=== PATIENT | female | born 1960 | race Caucasian/White ===

== ENCOUNTER 2017-02-07 02:59 | Emergency (ER) | payer OTHER ==
[~2017-02-07] VITALS: Ht 165.1 cm; Wt 68.0 kg
[~2017-02-07 02:59] MED LIST: BACTRIM DS TAB1 EAC1 ORAL; IBUPROFEN600 MG ORAL
[2017-02-07] MEDS ORDERED: CEPHALEXIN500 MG ORAL (03:25)
[2017-02-07 03:34] VITALS: BP 192/97
[2017-02-07] MEDS ORDERED: oxyCODONE HCL/Acetaminophen 5/325mg ORAL ONE (03:45)
[2017-02-07] MEDS ORDERED: KEFLEX500 MG ORAL (04:34)
[2017-02-07] MEDS ORDERED: BACTRIM DS TAB1 EAC1 ORAL (04:34)
--- NOTE | 2017-02-07 04:47 | Emergency Room Report ---
History of Present Illness General Chief Complaint: Skin Rash/Abscess Source: Patient Present Illness HPI [id number] [employer] patient with 2 days pain/swelling/abscess to right shoulder Previous abscesses Denies DM ?on keflex Denies fever/chills Allergies: Coded Allergies: No Known Allergies (Unverified , 02/07/17) Patient History Past Medical History: none Past Surgical History: none Pertinent Family History: none Social History: Denies: alcohol use, drug use, smoking Last Menstrual Period: n/a Now: No Immunizations: UTD Reviewed Nursing Documentation: PMH: Agreed, PSxH: Agreed Nursing Documentation-PMH Past Medical History: No History, Except For History Of Psychiatric Problem: Yes Review of Systems All Other Systems: negative except mentioned in HPI Physical Exam Vital Signs Date Time Temp Pulse Resp B/P Pulse Ox O2 Delivery O2 Flow Rate FiO2 02/07/17 03:18 97.9 103 16 192/97 100 Room Air Sp02 EP Interpretation: reviewed, normal General Appearance: normal inspection, well appearing, no apparent distress, alert Head: atraumatic ENT: normal ENT inspection, hearing grossly normal, normal voice Neck: normal inspection, full range of motion, supple, no bony tend Respiratory: normal inspection, lungs clear, normal breath sounds, no respiratory distress, no retraction, no wheezing Cardiovascular #1: regular rate, rhythm, no edema Gastrointestinal: normal inspection, normal bowel sounds, non tender, soft, no guarding, no hernia Genitourinary: no CVA tenderness Musculoskeletal: normal inspection, back normal, normal range of motion, Hussein' s Sign negative Neurologic: normal inspection, alert, oriented x3, responsive, 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 nml as tested, motor strength/tone normal, speech normal Psychiatric: normal inspection, judgement/insight normal, mood/affect normal Skin: other - Right lateral sholder with 4cm abscess with overlying erythema Procedures Incision and Drainage Incision and Drainage : Consent: Verbal Blade Size: 11 I & D Procedure: betadine prep Wound Location: upper extremity Wound's Depth, Shape: superficial Wound Explored: clean Anesthesia: Lidocaine w/ Epi Splint Applied?: No Sling Applied?: No Patient Tolerated: Well Complications: None Progress 15cc purulent pus evacuated from abscess Medical Decision Making Diagnostic Impression: Primary Impression: Abscess ER Course Abscess s/p I&D Patient endorses ?history of MRSA Will double coverage with Keflex/Bactrim PMD follow up as needed DC home Last Vital Signs Date Time Temp Pulse Resp B/P Pulse Ox O2 Delivery O2 Flow Rate FiO2 02/07/17 03:34 97.9 78 16 192/97 100 Room Air Status: improved Disposition: HOME, SELF-CARE Condition: Improved Scripts Trimethoprim/Sulfamethoxazole 160/800* (BACTRIM DS TABLET*) 1 Each Tablet 1 TAB ORAL Q12H for 7 Days, #14 TAB 0 Refills Prov: CHRISTOPH FINN M.D. 02/07/17 Cephalexin* (KEFLEX*) 500 Mg Capsule 500 MG ORAL EVERY 6 HOURS for 7 Days, #28 CAP 0 Refills Prov: CHRISTOPH FINN M.D. 02/07/17 Patient Instructions: CHRISTOPH Fofana M.D. Feb 07, 2017 04:47
[2017-02-07 04:55] VITALS: BP 192/97
== END 2017-02-07 04:55 | disposition home or self-care (01) ==
LOC: EMR 03:20
DX: L02.413 Cutaneous abscess of right upper limb (principal)
CPT/HCPCS: 10060; 99284

== ENCOUNTER 2017-12-01 04:20 | Emergency (ER) | payer OTHER ==
[~2017-12-01] VITALS: Ht 165.1 cm; Wt 68.0 kg
[~2017-12-01 04:20] MED LIST changes: +CEPHALEXIN500 MG ORAL; +KEFLEX500 MG ORAL
[2017-12-01 04:28] VITALS: BP 160/79
[2017-12-01] MEDS ORDERED: IBUPROFEN600 MG ORAL (04:36)
[2017-12-01] MEDS ORDERED: AMOXICILLIN500 MG ORAL (04:36)
[2017-12-01] MEDS ORDERED: HYDROCODON-ACE1 EA15 ORAL (04:36)
--- NOTE | 2017-12-01 04:36 | Emergency Room Report ---
History of Present Illness General Chief Complaint: Earache Source: Patient Present Illness HPI Is a 57-year-old female with a history of chronic back pain taking oxycodone. She present with right ear pain. Onset for one day. Slight congestion. Worse with coughing and sneezing. No fever chills but pain is 10 out of 10. Localized to the right ear. No drainage. Allergies: Coded Allergies: No Known Allergies (Unverified , 12/01/17) Patient History Past Medical History: see triage record, old chart reviewed Past Surgical History: other Pertinent Family History: none Social History: Reports: smoking Last Menstrual Period: n/a Now: No Immunizations: other Reviewed Nursing Documentation: PMH: Agreed; PSxH: Agreed Nursing Documentation-PMH Hx Hypertension: Yes Hx Diabetes: Yes Review of Systems Eye: Denies: eye pain, blurred vision ENT: Reports: ear pain; Denies: nose congestion, throat swelling Respiratory: Denies: cough, shortness of breath Cardiovascular: Denies: chest pain, palpitations Gastrointestinal: Denies: abdominal pain, diarrhea, nausea, vomiting Musculoskeletal: Denies: back pain, joint pain Skin: Denies: rash Neurological: Denies: headache, numbness Endocrine: Denies: increased thirst, increased urine Hematologic/Lymphatic: Denies: easy bruising All Other Systems: negative except mentioned in HPI Physical Exam Vital Signs Date Time Temp Pulse Resp B/P (MAP) Pulse Ox O2 Delivery O2 Flow Rate FiO2 12/01/17 04:23 98.2 100 16 160/79 96 Room Air 98.2 vitals normal Sp02 EP Interpretation: reviewed, normal General Appearance: well appearing, no apparent distress, alert Head: normocephalic, atraumatic Eyes: bilateral eye PERRL, bilateral eye EOMI ENT: hearing grossly normal, normal pharynx, other - Right TM is dull with fluid. Neck: full range of motion, supple, no meningismus Respiratory: chest non-tender, lungs clear, normal breath sounds Cardiovascular #1: regular rate, rhythm, no murmur Gastrointestinal: normal bowel sounds, non tender, no mass, no organomegaly, no bruit, non-distended Musculoskeletal: back normal, gait/station normal, normal range of motion Psychiatric: mood/affect normal Skin: warm/dry Medical Decision Making Diagnostic Impression: Primary Impression: Acute otitis media with effusion of right ear ER Course Patient with otitis media with effusion. No perforation. No mastoiditis or meningitis. No other bacterial infection. We'll discharge home. Last Vital Signs Date Time Temp Pulse Resp B/P (MAP) Pulse Ox O2 Delivery O2 Flow Rate FiO2 12/01/17 04:28 98.2 100 16 160/79 96 Room Air 98.2 Status: improved Disposition: HOME, SELF-CARE Condition: Stable Scripts Ibuprofen* (MOTRIN*) 600 Mg Tablet 600 MG ORAL THREE TIMES A DAY, #30 TAB 0 Refills Prov: NERISSA DANIELSON M.D. 12/01/17 Hydrocodone/Acetaminophen 5-325* (HYDROCODONE/ACETAMINOPHEN 5-325*) 1 Each Tablet 1 TAB ORAL Q6H PRN for For Pain, #10 TAB 0 Refills Prov: NERISSA DANIELSON M.D. 12/01/17 Amoxicillin* (AMOXIL*) 500 Mg Capsule 500 MG ORAL THREE TIMES A DAY, #21 CAP Prov: NERISSA DANIELSON M.D. 12/01/17 Patient Instructions: Otitis Media, Adult, [id number] Additional Instructions: Follow-up with your doctor in 5-7 days. Return if symptom worsen. NERISSA DANIELSON M.D. Dec 01, 2017 04:36
[2017-12-01] MEDS ORDERED: Norco 5mg/325mg tab ORAL ONE (04:45)
[2017-12-01 04:52] VITALS: BP 160/79
== END 2017-12-01 05:20 | disposition home or self-care (01) ==
LOC: EMR 05:18
DX: H65.191 Other acute nonsuppurative otitis media, right ear (principal); I10 Essential (primary) hypertension; E11.9 Type 2 diabetes mellitus without complications
CPT/HCPCS: 99284

== ENCOUNTER 2018-04-03 18:40 | Emergency (ER) | payer OTHER ==
[~2018-04-03] VITALS: Ht 165.1 cm; Wt 68.0 kg
[~2018-04-03 18:40] MED LIST changes: +AMOXICILLIN500 MG ORAL; +HYDROCODON-ACE1 EA15 ORAL
[2018-04-03] MEDS ORDERED: BACTROBAN CR1 APPLIC TOPIC (19:09)
[2018-04-03] MEDS ORDERED: BACTRIM DS TAB1 EAC1 ORAL (19:09)
[2018-04-03] MEDS ORDERED: CEPHALEXIN500 MG ORAL (19:09)
--- NOTE | 2018-04-03 19:13 | Emergency Room Report ---
History of Present Illness General Chief Complaint: Skin Rash/Abscess Source: Patient Present Illness HPI Patient presents emergency department today complaining of left buttock rash. Patient states that she's had this rash for couple days progressively became worse with worsening pain and some discharge. She denies any fever nausea vomiting diarrhea chills. No other complaints are noted. Symptoms noted to be mild/moderate.No other modifying factors. No other associated signs and symptoms. No other complaints were noted. Allergies: Coded Allergies: No Known Allergies (Unverified , 12/01/17) Patient History Past Medical History: DM, HTN Past Surgical History: none Pertinent Family History: none Social History: Denies: smoking, alcohol use, drug use Now: No Reviewed Nursing Documentation: PMH: Agreed; PSxH: Agreed Nursing Documentation-PMH Hx Hypertension: Yes Hx Diabetes: Yes Review of Systems All Other Systems: negative except mentioned in HPI Physical Exam Vital Signs Date Time Temp Pulse Resp B/P (MAP) Pulse Ox O2 Delivery O2 Flow Rate FiO2 04/03/18 18:51 97.9 97 20 173/89 93 Room Air 97.9 Sp02 EP Interpretation: reviewed, normal General Appearance: normal inspection, well appearing, no apparent distress, alert Head: atraumatic Eyes: bilateral eye normal inspection ENT: hearing grossly normal, normal voice Neck: supple, no bony tend Respiratory: no respiratory distress Cardiovascular #1: no edema Musculoskeletal: normal inspection Neurologic: normal inspection, alert, responsive, speech normal Psychiatric: normal inspection, judgement/insight normal, mood/affect normal Skin: other - Impetigo left buttock area about the size of quarter Medical Decision Making Diagnostic Impression: Primary Impression: Impetigo ER Course Patient presents emergency department today with a rash which is consistent with impetigo. Differential considerations however include abscess cellulitis herpes zoster just name a few. Patient's exam consistent with impetigo will apply cream and given oral antibiotics. We'll provide prescription for Bactroban.Patient is advised to follow up with primary doctor in 2-3 days and return the emergency room for any worsening symptoms and as needed. Last Vital Signs Date Time Temp Pulse Resp B/P (MAP) Pulse Ox O2 Delivery O2 Flow Rate FiO2 04/03/18 18:51 97.9 97 20 173/89 93 Room Air 97.9 Status: improved Disposition: HOME, SELF-CARE Condition: Stable Scripts Cephalexin* (KEFLEX*) 500 Mg Capsule 500 MG ORAL EVERY 6 HOURS for 7 Days, CAP Prov: Alvarado Patel MD 04/03/18 Trimethoprim/Sulfamethoxazole 160/800* (BACTRIM DS TABLET*) 1 Each Tablet 1 TAB ORAL Q12H, #14 TAB 0 Refills Prov: Alvarado Patel MD 04/03/18 Mupirocin Calcium (Bactroban) 15 Gm Cream..g. 1 APPLIC TOPIC THREE TIMES A DAY for 14 Days, GM Prov: Alvarado Patel MD 04/03/18 Patient Instructions: Impetigo, Adult Alvarado Patel MD Apr 03, 2018 19:13
[2018-04-03 19:17] VITALS: BP 173/89
[2018-04-03 19:38] VITALS: BP 176/86
[2018-04-03 19:44] VITALS: BP 176/86
== END 2018-04-03 19:39 | disposition home or self-care (01) ==
LOC: EMR 19:37
DX: L01.00 Impetigo, unspecified (principal); I10 Essential (primary) hypertension; E11.9 Type 2 diabetes mellitus without complications
CPT/HCPCS: 99283

== ENCOUNTER 2018-06-17 02:51 | Emergency (ER) | payer OTHER ==
[~2018-06-17] VITALS: Ht 162.6 cm; Wt 63.5 kg
[~2018-06-17 02:51] MED LIST changes: +BACTROBAN CR1 APPLIC TOPIC
[2018-06-17 03:08] VITALS: BP 142/91
--- NOTE | 2018-06-17 04:19 | Diagnostic Imaging Report ---
EXAM: XR Left Shoulder Complete, 2 or More Views CLINICAL HISTORY: PAIN TECHNIQUE: Two or more views of the left shoulder. COMPARISON: No relevant prior studies available. IMPRESSION: No acute fracture or dislocation. If there is concern for posterior dislocation, suggest axillary view. Mild degenerative changes. Downsloping of acromion which may predispose to impingement.
[2018-06-17] MEDS ORDERED: CEPHALEXIN500 MG ORAL (04:30)
[2018-06-17] MEDS ORDERED: BACTRIM DS TAB1 EAC1 ORAL (04:30)
[2018-06-17 04:36] VITALS: BP 141/89
--- NOTE | 2018-06-17 06:07 | Emergency Room Report ---
History of Present Illness General Chief Complaint: Pain Source: Patient Present Illness HPI 58-year-old female presents to ED complaining of left shoulder pain. Started last night. Denies any trauma. Pain is throbbing, 9 out of 10, nonradiating. States that she may have an infection. States she has had previous abscesses. States that she started taking antibiotics that she found in her house. Denies fevers or chills. No other aggravating relieving factors. Denies any other associated symptoms Allergies: Coded Allergies: No Known Allergies (Unverified , 12/01/17) Patient History Past Medical History: DM, HTN Past Surgical History: none Pertinent Family History: none Social History: Denies: smoking, alcohol use, drug use Last Menstrual Period: MENOPAUSE Now: No Immunizations: UTD Reviewed Nursing Documentation: PMH: Agreed; PSxH: Agreed Nursing Documentation-PMH Past Medical History: No Stated History Hx Hypertension: Yes Hx Diabetes: Yes Review of Systems All Other Systems: negative except mentioned in HPI Physical Exam Vital Signs Date Time Temp Pulse Resp B/P (MAP) Pulse Ox O2 Delivery O2 Flow Rate FiO2 06/17/18 02:53 97.9 84 18 150/96 99 Room Air Sp02 EP Interpretation: reviewed, normal General Appearance: no apparent distress, alert, GCS 15, non-toxic Head: normocephalic Eyes: bilateral eye normal inspection, bilateral eye PERRL ENT: normal ENT inspection Neck: normal inspection Respiratory: normal inspection Cardiovascular #1: normal inspection Gastrointestinal: normal inspection Rectal: deferred Genitourinary: no CVA tenderness Musculoskeletal: back normal, gait/station normal, normal range of motion, tender - L shoulder Neurologic: alert, oriented x3, responsive, motor strength/tone normal, sensory intact, speech normal Psychiatric: normal inspection Skin: normal color, no rash, warm/dry, well hydrated Lymphatic: normal inspection Medical Decision Making Diagnostic Impression: Primary Impression: Shoulder pain Qualified Codes: M25.512 - Pain in left shoulder Additional Impression: Opioid dependence Qualified Codes: F11.29 - Opioid dependence with unspecified opioid-induced disorder ER Course Hospital Course 58-year-old F presents to ED complaining of L shoulder pain. no trauma Differential diagnoses include: Fracture, dislocation, sprain, contusion Clinical course Patient placed on stretcher. After initial history and physical, I ordered Xrays of L shoulder Xrays prelim read shows no acute fracture/dislocation. I reviewed EMR. Patient has been here previously for abscesses which have been found on her right shoulder. There is no induration or erythema or fluctuance suggestive of abscess at this time. Patient insists that there is an infection. I explained the patient that I will not perform and I&D without clinical evidence of abscess I reviewed CURES; patient has been receiving extensive prescriptions for OxyContin on a regular basis. Patient placed in shoulder sling. Recommend close outpatient follow-up with orthopedics Diagnosis - shoulder pain, opioid dependence Stable and discharged to home with prescription for keflex/bactrim. apply ice, keep elevated. weight bear as tolerated. Followup with orthopedics. Return to ED if symptoms recur or worsen Other X-Ray Diagnostic Results Other X-Ray Diagnostic Results : X-Ray ordered: L shoulder # of Views/Limited Vs Complete: 3 View Indication: Pain EP Interpretation: Yes Interpretation: no dislocation, no soft tissue swelling, no fractures Impression: No acute disease Electronically Signed by: Electronically signed by Wesley Sapp MD Last Vital Signs Date Time Temp Pulse Resp B/P (MAP) Pulse Ox O2 Delivery O2 Flow Rate FiO2 06/17/18 04:36 97.8 76 18 141/89 99 Room Air Status: improved Disposition: HOME, SELF-CARE Condition: Stable Scripts Trimethoprim/Sulfamethoxazole 160/800* (BACTRIM DS TABLET*) 1 Each Tablet 1 TAB ORAL Q12H, #14 TAB 0 Refills Prov: Wesley Sapp MD 06/17/18 Cephalexin* (KEFLEX*) 500 Mg Capsule 500 MG ORAL EVERY 6 HOURS for 7 Days, CAP Prov: Wesley Sapp MD 06/17/18 Referrals: NOT CHOSEN IPA/,REFERRING (PCP) Patient Instructions: Shoulder Pain, [id number] Wesley Sapp MD Jun 17, 2018 06:07
== END 2018-06-17 04:36 | disposition home or self-care (01) ==
LOC: EMR 04:07
DX: M25.512 Pain in left shoulder (principal); F11.20 Opioid dependence, uncomplicated; I10 Essential (primary) hypertension; E11.9 Type 2 diabetes mellitus without complications
CPT/HCPCS: 99283

== ENCOUNTER 2020-08-11 18:40 | Emergency (ER) | payer OTHER ==
[~2020-08-11] VITALS: Ht 165.1 cm; Wt 90.7 kg
--- NOTE | 2020-08-11 19:19 | Emergency Room Report ---
History of Present Illness General Chief Complaint: Edema Source: Patient Present Illness HPI Disclaimer: Please note that this report is being documented using DRAGON technology. This can lead to erroneous entry secondary to incorrect interpretation by the dictating instrument. HPI: 60-year-old female no reported medical history presents for evaluation of unilateral leg swelling. Patient states 2 days ago her right leg started swelling from the knee downward for no apparent reason. Denies injury or fall. Denies history of DVT. No recent travel. No surgery. No history of coagulopathy. Does not take any medications. Has not seen a doctor in some time. Denies any comorbid conditions. No prior history of lower extremity edema. Reports some pain but not excruciating. Otherwise denies fever, chills, chest pain, palpitations, shortness of breath, dysuria, hematuria or other symptoms. PMH: Denied PSH: Denied Allergies: Denied Social Hx: Denied Allergies: Coded Allergies: No Known Allergies (Unverified , 12/01/17) COVID-19 Screening Contact w/high risk pt: No Experienced COVID-19 symptoms?: No COVID-19 Testing performed SAP GATHERER: No Nursing Documentation-PMH Past Medical History: No History, Except For Hx Hypertension: Yes Hx Diabetes: Yes Review of Systems All Other Systems: negative except mentioned in HPI Physical Exam Vital Signs Date Time Temp Pulse Resp B/P (MAP) Pulse Ox O2 Delivery O2 Flow Rate FiO2 08/11/20 18:51 98.1 119 20 95 Room Air General: Awake and alert, very anxious, crying HEENT: NC/AT. EOMI. Cardiovascular: Tachycardic Resp: Normal work of breathing. No cough, wheezing or crackles appreciated Abdomen: Abdomen is soft, nondistended. Obese. Nontender Skin: Intact. No abrasions, laceration or rash over the exposed skin MSK: Normal tone and bulk. Moving all extremities. There is 2+ pitting edema distal to the right knee including the foot and ankle. Circumferential. Moderate tenderness over palpation. Palpable PT pulse. Brisk capillary refill in digits. No erythema. No skin breakdown. Neuro: Awake and alert. Mentating appropriately. Medical Decision Making Diagnostic Impression: Primary Impression: Peripheral edema ER Course This a 60-year-old female presenting for evaluation of atraumatic unilateral edema. No evidence of infection. Patient reported no trauma. Concern for DVT ultrasound study was obtained. Duplex that he did not show any occlusive thrombus. Patient has no signs of cellulitis or trauma. May be a muscle strain or idiopathic. She is in no discomfort. Feels reassured that there is no blood clot. Referred her to clinics and she can follow-up on an outpatient basis. Recommend compression stockings, leg elevation, removing sodium from her diet. Return precautions discussed. She understands and agrees with this treatment plan. Last Vital Signs Date Time Temp Pulse Resp B/P (MAP) Pulse Ox O2 Delivery O2 Flow Rate FiO2 08/11/20 18:51 98.1 119 20 95 Room Air Disposition: HOME, SELF-CARE Condition: Stable Hector Briggs MD Aug 11, 2020 19:19
--- NOTE | 2020-08-11 19:30 | NUR ---
ED Nurse Note: rcvd pt from primary nurse. Pt resting comfortably on stretcher. VS WNL. breathing without complications on RA. denies any pain at this time. pt states she has right sided foot swelling for the last 3 days. pulses are bilateral and strong. will continue to monitor. pt awaiting US of foot
[2020-08-11 19:51] VITALS: BP 137/92
--- NOTE | 2020-08-11 20:10 | NUR ---
ER DISCHARGE NOTE: Patient is cleared to be discharged per ERMD, pt is aox4, on room air, with stable vital signs. pt was given dc instructions, pt was able to verbalize understanding, pt id band removed without complications. pt is able to ambulate with steady gait. pt took all belongings.
[2020-08-11 20:13] VITALS: BP 137/92
--- NOTE | 2020-08-12 15:01 | Diagnostic Imaging Report ---
Indication: Right leg pain Technique: Grayscale and duplex images of the right lower extremity veins Comparison: None Findings: On the right, grayscale and duplex images demonstrate no evidence of intraluminal thrombus. Normal phasic Doppler waveforms, demonstrating normal augmentation response and no evidence of valvular insufficiency. Greater saphenous vein(s) and tibial veins are patent. Normal compressibility. Impression: Negative for evidence of lower extremity deep venous thrombosis on the right
== END 2020-08-11 20:17 | disposition home or self-care (01) ==
LOC: EMR 19:15
DX: R60.0 Localized edema (principal); E66.9 Obesity, unspecified; E11.9 Type 2 diabetes mellitus without complications; I10 Essential (primary) hypertension; Z68.33 Body mass index [BMI] 33.0-33.9, adult
CPT/HCPCS: 93971; 99283